=== PATIENT | male | born 1955 | race Caucasian/White ===

== ENCOUNTER → 2024-10-07 | Outpatient (CLI) | payer MEDICARE ==
[~2024-10-07] MED LIST: BACL1TAB9 PO; CELE40TA PO; LIORESAL PO; PROHANCE 279.3MG/ML 15ML VIAL ONE; PROHANCE 279.3MG/ML 5ML VIAL ONE; TYLE325T5 PO; VITA-110 PO
== END ==
LOC: M PLAIMG 12:54
PROVIDERS: ATTEND Urology
DX: R97.20 Elevated prostate specific antigen [PSA] (principal)
CPT/HCPCS: 72197; A9576